=== PATIENT | female | born 1990 | race Two or more races ===

== ENCOUNTER 2019-07-20 13:19 | Emergency (ER) | payer MEDICAID ==
[~2019-07-20] VITALS: Ht 162.6 cm; Wt 70.8 kg
[2019-07-20 13:29] VITALS: BP 114/78; Ht 162.6 cm; Wt 70.8 kg
== END 2019-07-20 13:54 | disposition home or self-care (01) ==
LOC: ED 13:19
DX: N12 Tubulo-interstitial nephritis, not specified as acute or chronic (principal)
CPT/HCPCS: J1885